=== PATIENT | female | born 2000 ===

== ENCOUNTER 2025-03-22 11:24 | Outpatient (CLI) | payer OTHER | END 2025-03-22 11:25 | disposition home or self-care (01) | LOC: PRENATAL 11:24 | PROVIDERS: ATTEND Obstetrics & Gynecology Maternal & Fetal Medicine | DX: O44.00 Complete placenta previa NOS or without hemorrhage, unspecified trimester (principal); Z3A.18 18 weeks gestation of pregnancy ==

== ENCOUNTER 2025-04-25 15:07 | Outpatient (CLI) | payer OTHER | END 2025-04-25 15:08 | disposition home or self-care (01) | LOC: PRENATAL 15:07 | DX: O26.849 Uterine size-date discrepancy, unspecified trimester (principal); O28.3 Abnormal ultrasonic finding on antenatal screening of mother; Z3A.24 24 weeks gestation of pregnancy ==

== ENCOUNTER 2025-07-07 10:15 | Outpatient (CLI) | payer OTHER | END 2025-07-07 10:16 | disposition home or self-care (01) | LOC: PRENATAL 10:15 | PROVIDERS: ATTEND Obstetrics & Gynecology Maternal & Fetal Medicine | DX: O26.849 Uterine size-date discrepancy, unspecified trimester (principal); O36.8130 Decreased fetal movements, third trimester, not applicable or unspecified; O60.00 Preterm labor without delivery, unspecified trimester; Z3A.34 34 weeks gestation of pregnancy ==

== ENCOUNTER → 2025-07-19 09:52 | Outpatient (CLI) | payer OTHER | END | disposition home or self-care (01) | LOC: PRENATAL 09:52 | PROVIDERS: ATTEND Obstetrics & Gynecology Maternal & Fetal Medicine | DX: O26.849 Uterine size-date discrepancy, unspecified trimester (principal); O36.8130 Decreased fetal movements, third trimester, not applicable or unspecified; O14.90 Unspecified pre-eclampsia, unspecified trimester; Z3A.35 35 weeks gestation of pregnancy ==

== ENCOUNTER 2025-08-01 14:50 | Outpatient (CLI) | payer OTHER | END 2025-08-01 14:51 | disposition home or self-care (01) | LOC: PRENATAL 14:50 | PROVIDERS: ATTEND Obstetrics & Gynecology Maternal & Fetal Medicine | DX: O26.849 Uterine size-date discrepancy, unspecified trimester (principal); O36.8130 Decreased fetal movements, third trimester, not applicable or unspecified; Z3A.36 36 weeks gestation of pregnancy ==